=== PATIENT | female | born 1960 | race Caucasian/White ===

== ENCOUNTER → 2016-08-30 | Day surgery (SDC) | payer OTHER ==
[~2016-08-30] MED LIST: LACTATED RINGERS 1,000 ML IV SCH; LIDOCAINE 1% 20 ML VIAL (10MG/ML) FOR IV START INTRADERMA PRN; LIDOCAINE 1% INJ 10MG/ML (20 ML MDV) ONE; PROPOFOL 10 MG/ML 20 ML VIAL IV ONE
[2016-08-30 09:15] VITALS: RESP 16; TEMP 98.4
--- NOTE | 2016-08-30 10:05 | P.GSHP ---
History of Present Illness H&P Date: 08/30/16 Chief Complaint: GERD 's is a 56-year-old female for from Dr. Master Starr. Patient rents today for EGD. She's had issues with GERD and nausea. - Constitutional Constitutional: Reports as per HPI Past Medical History Past Medical History: Cancer, GERD/Reflux, Hypertension, Osteoarthritis (OA) Additional Past Medical History / Comment(s): Cervical CA, History of Any Multi-Drug Resistant Organisms: None Reported Past Surgical History: No Surgical Hx Reported Additional Past Surgical History / Comment(s): rt foot surgery, surgery for cervical CA Past Anesthesia/Blood Transfusion Reactions: Motion Sickness, Postoperative Nausea & Vomiting (PONV) Past Psychological History: Anxiety, Depression Smoking Status: Current every day smoker Past Alcohol Use History: Daily Additional Past Alcohol Use History / Comment(s): smokes 1 PPD for 35 yrs Past Drug Use History: Marijuana - Past Family History Mother Family Medical History: Cancer Medications and Allergies Home Medications Medication Instructions Recorded Confirmed Type FLUoxetine HCL [PROzac] 20 mg PO DAILY 12/02/14 08/30/16 History Lisinopril [Prinivil] 20 mg PO DAILY 12/02/14 08/30/16 History Meloxicam [Mobic] 7.5 mg PO BID 12/02/14 08/30/16 History Prochlorperazine [Compazine] 10 mg PO BID 08/27/16 08/30/16 History Propranolol HCl 80 mg PO DAILY 08/27/16 08/30/16 History traMADol HCL [Ultram] 50 mg PO TID 08/27/16 08/30/16 History Allergies Allergy/AdvReac Type Severity Reaction Status Date / Time No Known Allergies Allergy Verified 08/30/16 09:07 Surgical - Exam Vital Signs Temp Pulse Resp BP Pulse Ox 98.4 F 72 16 142/94 97 08/30/16 09:14 08/30/16 09:14 08/30/16 09:14 08/30/16 09:14 08/30/16 09:14 - General well developed, no distress - Eyes PERRL - ENT normal pinna - Neck no masses - Respiratory normal expansion - Cardiovascular Rhythm: regular - Abdomen Abdomen: soft, non tender Assessment and Plan Plan: GERD, nausea. We'll perform EGD.
--- NOTE | 2016-08-30 10:15 | P.OP ---
Date of Procedure: 08/30/16 Preoperative Diagnosis: GERD Postoperative Diagnosis: Mild antral gastritis No hiatal hernia Mild esophagitis Procedure(s) Performed: EGD Implants: Anesthesia: MAC Surgeon: Marty Smith Pathology: other (Antrum, esophagus) Condition: stable Disposition: PACU Indications for Procedure: Operative Findings: Description of Procedure: The patient's placed on the endoscopy table in the lateral position. She received IV sedation. The gastroscope some placed oropharynx and passed into the esophagus and stomach. Scope was then placed through the pylorus and into the first and second portion of the duodenum. This appeared normal. Scope was then brought back the antrum and this appeared mildly inflamed and a biopsy was performed. The scope was then retroflexed and remainder stomach appeared normal. Near the GI the junction there is mild gastritis another biopsy performed. There was no significant hiatal hernia. The distal esophagus appeared mildly inflamed a biopsies performed. The proximal esophagus appeared normal. Scope was withdrawn for patient.
[2016-08-30 11:31] VITALS: BP 184/88; PULSE 69
--- NOTE | 2016-08-30 15:58 | NM ---
EXAMINATION TYPE: NM hepatobiliary w EF DATE OF EXAM: 08/30/2016 COMPARISON: NONE HISTORY: Chronic nausea and indigestion. TECHNIQUE: After the intravenous administration of 5.26 mCi Tc 99m Mebrofenin hepatobiliary scintigra phy is performed. Immediate images post injection. FINDINGS: There is satisfactory initial accumulation of tracer by the liver. The gallbladder is visualized wit hin 120 minutes. The small bowel activity is noted within 20 minutes. At 2 hour 8 ounces of oral en sure plus is given to mimic CCK and gallbladder ejection fraction is calculated at 70 %, in the giacomo l range. Therefore there is no scintigraphic evidence of cystic or common bile duct obstruction to s uggest acute cholecystitis or gallbladder dyskinesia. IMPRESSION: Exam is within normal limits.
== END ==
LOC: ORWHC2ENDO 08:58
PROVIDERS: ATTEND Surgery
DX: K21.0 Gastro-esophageal reflux disease with esophagitis (principal); K29.70 Gastritis, unspecified, without bleeding; R11.0 Nausea; K30 Functional dyspepsia; I10 Essential (primary) hypertension; M19.90 Unspecified osteoarthritis, unspecified site; F41.9 Anxiety disorder, unspecified; F39 Unspecified mood [affective] disorder; F32.9 Major depressive disorder, single episode, unspecified; F17.200 Nicotine dependence, unspecified, uncomplicated; Z79.899 Other long term (current) drug therapy; Z79.891 Long term (current) use of opiate analgesic
CPT/HCPCS: 88305; 88312; 78226; 43239; A9537; J2001; J2704

== ENCOUNTER → 2016-09-22 | Outpatient (CLI) | payer OTHER ==
--- NOTE | 2016-09-22 12:11 | FL ---
EXAMINATION TYPE: FL UGI air w small bowel DATE OF EXAM: 09/22/2016 11:46 AM COMPARISON: NONE CLINICAL HISTORY: K21.9 GERD Preliminary view of the abdomen reveals a normal bowel gas pattern. Upper GI examination was performed according to the air contrast technique. Barium and effervescent crystal was swallowed without difficulty or delay. Esophageal peristalsis and motility are within normal limits. There is no evidence for esophagitis, intraluminal mass, hiatal hernia . Mild gastroesophageal reflux is noted without definite esophagitis . The stomach has a normal appearance in terms of its size, shape and location. No gastric filling def ects or ulcer craters are seen. The duodenal bulb and descending portion of the duodenum demonstrate wall thickening and nodular folds which may reflect underlying duodenitis or scarring from prior [facility] er disease. Correlate clinically. Small bowel follow-through was performed with a transit time of 60 minutes. Small bowel loops are of normal caliber and demonstrate normal mucosal fold pattern. No evidence for obstruction. No intrinsic or extrinsic mass effects or filling defects. Terminal ileum has a normal appearance. IMPRESSION: 1. Duodenal wall thickening and nodular folds may reflect underlying duodenitis or scarring from prio r ulcer disease. 2. Mild gastroesophageal reflux.
== END | disposition home or self-care (01) ==
LOC: RADFLMAIN 09:05
PROVIDERS: ATTEND Surgery
DX: K21.9 Gastro-esophageal reflux disease without esophagitis (principal); K31.89 Other diseases of stomach and duodenum; R91.8 Other nonspecific abnormal finding of lung field
CPT/HCPCS: 74249

== ENCOUNTER 2017-04-02 16:48 | Emergency (ER) | payer OTHER ==
[2017-04-02 17:08] VITALS: BP 112/83; PULSE 105; RESP 18; TEMP 101.8
[2017-04-02] MEDS ORDERED: ACETAMINOPHEN TAB 500 MG TAB PO STA (17:11)
[2017-04-02] MEDS ORDERED: IBUPROFEN 600 MG TAB PO STA (17:11)
--- NOTE | 2017-04-02 17:15 | ED ---
General Adult HPI - General Chief complaint: Upper Respiratory Infection Stated complaint: Cough Time Seen by Provider: 04/02/17 17:09 Source: patient, RN notes reviewed Mode of arrival: ambulatory Limitations: no limitations - History of Present Illness Initial comments: 56 yo female presents to the ER with cc of cough and congestion x 2 weeks. She states she has had cough, congestion, nasal drainage, and on and off fever and chills. Patient states she has been using Mucinex which does help. She was concerned due to her continued symptoms so she thought she should be seen. Patient is currently in the process of quitting smoking. Patient denies any recent fever, chills, shortness of breath, chest pain, back pain, abdominal pain , nausea vomiting, numbness or tingling, dysuria or hematuria, constipation or diarrhea, headaches or visual changes, or any other current symptoms. - Related Data Home Medications Medication Instructions Recorded Confirmed FLUoxetine HCL [PROzac] 20 mg PO DAILY 12/02/14 08/30/16 Lisinopril [Prinivil] 20 mg PO DAILY 12/02/14 08/30/16 Meloxicam [Mobic] 7.5 mg PO BID 12/02/14 08/30/16 Prochlorperazine [Compazine] 10 mg PO BID 08/27/16 08/30/16 Propranolol HCl 80 mg PO DAILY 08/27/16 08/30/16 traMADol HCL [Ultram] 50 mg PO TID 08/27/16 08/30/16 Previous Rx's Medication Instructions Recorded Albuterol Inhaler [Ventolin Hfa 1 - 2 puff INHALATION Q4-6H PRN #1 04/02/17 Inhaler] inhaler Levofloxacin [Levaquin] 750 mg PO DAILY #7 tab 04/02/17 Allergies Allergy/AdvReac Type Severity Reaction Status Date / Time No Known Allergies Allergy Verified 04/02/17 17:08 Review of Systems ROS Statement: Those systems with pertinent positive or pertinent negative responses have been documented in the HPI. ROS Other: All systems not noted in ROS Statement are negative. Past Medical History Past Medical History: Cancer, GERD/Reflux, Hypertension, Osteoarthritis (OA) Additional Past Medical History / Comment(s): Cervical CA, ddd History of Any Multi-Drug Resistant Organisms: None Reported Past Surgical History: No Surgical Hx Reported Additional Past Surgical History / Comment(s): rt foot surgery, surgery for cervical CA Past Anesthesia/Blood Transfusion Reactions: Motion Sickness, Postoperative Nausea & Vomiting (PONV) Past Psychological History: Anxiety, Depression Smoking Status: Current every day smoker Past Alcohol Use History: Daily Past Drug Use History: Marijuana - Past Family History Mother Family Medical History: Cancer General Exam - General Exam Comments Initial Comments: General exam: Alert, active, comfortable in no apparent distress Head: Normocephalic Eyes: Normal reaction of pupils, equal size, normal range of extraocular motion Ears: normal external ear canals, pink tympanic membranes with normal cone of light Nose: clear with pink turbinates Throat: no erythema or exudates with normal sized tonsils Neck: no masses, no nuchal rigidity Chest: no chest wall deformity Lungs: equal air entry with no crackles or wheeze CVS: S1 and S2 normal with no audible mumurs, regular rhythm Abdomen: no hepatosplenomegaly, normal bowel sounds, no guarding or rigidity Spine: no scoliosis or deformity Skin: no rashes Neurological: No focal deficits, tone is normal in all 4 extremities Limitations: no limitations Course Vital Signs 04/02/17 17:04 Temperature 101.8 F H Pulse Rate 105 H Respiratory 18 Rate Blood Pressure 112/83 O2 Sat by Pulse 96 Oximetry Medical Decision Making - Medical Decision Making 56-year-old female presents for upper respiratory like illness. At this time x- ray does show pneumonia. This was a patient on Levaquin. We also did give her an inhaler for home. We discussed follow-up with her doctor and return parameters. We discussed all the patient's questions. She stated that she understood and she is agreement this plan. All questions have been answered. She will be discharged. - Lab Data Lab Results 04/02/17 Range/Units 17:18 Influenza Type A RNA Not Detected (Not Detectd) Influenza Type B (PCR) Not Detected (Not Detectd) - Radiology Data Radiology results: report reviewed, image reviewed Disposition Clinical Impression: Pneumonia of both lower lobes Disposition: HOME SELF-CARE Condition: Stable Instructions: Bacterial Pneumonia (ED) Additional Instructions: Please use medication as discussed. Please follow up with family doctor if symptoms have not improved over the next two days. Please return to the emergency room if your symptoms increase or worsen or for any other concerns. Prescriptions: Albuterol Inhaler [Ventolin Hfa Inhaler] 1 - 2 puff INHALATION Q4-6H PRN #1 inhaler PRN Reason: Cough Levofloxacin [Levaquin] 750 mg PO DAILY #7 tab Referrals: Master Justice MD [Primary Care Provider] - 1-2 days Time of Disposition: 17:53
--- NOTE | 2017-04-02 17:33 | XR ---
EXAMINATION TYPE: XR chest 2V DATE OF EXAM: 04/02/2017 COMPARISON: Chest x-ray October 15, 2015. HISTORY: Cough. TECHNIQUE: Frontal and lateral views of the chest are obtained. FINDINGS: There is Right greater than left patchy bibasilar opacities with lower lobe involvement se en on lateral view. No pleural effusion or pneumothorax is seen. The cardiac silhouette size is with in normal limits. The osseous structures are intact. IMPRESSION: New suspicious right greater than left bibasilar infiltrates.
== END 2017-04-02 18:09 | disposition home or self-care (01) ==
LOC: EC 16:48
DX: J18.9 Pneumonia, unspecified organism (principal); K21.9 Gastro-esophageal reflux disease without esophagitis; I10 Essential (primary) hypertension; M19.90 Unspecified osteoarthritis, unspecified site; F32.9 Major depressive disorder, single episode, unspecified; F41.9 Anxiety disorder, unspecified; F17.200 Nicotine dependence, unspecified, uncomplicated; Z85.41 Personal history of malignant neoplasm of cervix uteri; Z79.1 Long term (current) use of non-steroidal anti-inflammatories (NSAID); Z79.899 Other long term (current) drug therapy
CPT/HCPCS: 71046; 87502; 99283

== ENCOUNTER 2018-12-03 17:25 | Emergency (ER) | payer MEDICARE, OTHER ==
[2018-12-03 17:35] VITALS: RESP 16
--- NOTE | 2018-12-03 18:32 | XR ---
EXAMINATION TYPE: XR hand complete LT DATE OF EXAM: 12/03/2018 COMPARISON: NONE HISTORY: Pain and swelling TECHNIQUE: 4 views FINDINGS: There is nondisplaced fracture of the posterior base of the proximal phalanx of the little finger. There is dorsal soft tissue swelling. The metacarpals appear intact. There is some narrowing and spurring at the first carpometacarpal joint. There is some deformity of the base of the proximal phalanx of the ring finger consistent with an old healed fracture. IMPRESSION: Acute transverse fracture across the base of the proximal phalanx of the little finger. N o dislocation. Soft tissue swelling.
--- NOTE | 2018-12-03 18:57 | ED ---
Upper Extremity HPI - General Chief Complaint: Extremity Injury, Upper Stated Complaint: left hand injury from fall Time Seen by Provider: 12/03/18 17:50 Source: patient Mode of arrival: ambulatory Limitations: no limitations - History of Present Illness Initial Comments: Patient is a 58-year-old female presenting to the emergency Department with complaints of left hand pain since yesterday. Patient states she tripped and fell landing on her left hand onto cement yesterday. Patient states the pain and swelling has increased today so she wanted to it to be checked. Patient denies any previous surgeries or injuries to left hand. Patient has no other complaints at this time. Patient denies hitting her head or any other injuries from a fall yesterday. Upon arrival to ER medicines are stable. - Related Data Home Medications Medication Instructions Recorded Confirmed FLUoxetine HCL [PROzac] 20 mg PO DAILY 12/02/14 08/30/16 Lisinopril [Prinivil] 20 mg PO DAILY 12/02/14 08/30/16 Meloxicam [Mobic] 7.5 mg PO BID 12/02/14 08/30/16 Prochlorperazine [Compazine] 10 mg PO BID 08/27/16 08/30/16 Propranolol HCl 80 mg PO DAILY 08/27/16 08/30/16 traMADol HCL [Ultram] 50 mg PO TID 08/27/16 08/30/16 Previous Rx's Medication Instructions Recorded Albuterol Inhaler [Ventolin Hfa 1 - 2 puff INHALATION Q4-6H PRN #1 04/02/17 Inhaler] inhaler Levofloxacin [Levaquin] 750 mg PO DAILY #7 tab 04/02/17 Allergies Allergy/AdvReac Type Severity Reaction Status Date / Time No Known Allergies Allergy Verified 12/03/18 17:35 Review of Systems ROS Statement: Those systems with pertinent positive or pertinent negative responses have been documented in the HPI. ROS Other: All systems not noted in ROS Statement are negative. Past Medical History Past Medical History: Cancer, GERD/Reflux, Hypertension, Osteoarthritis (OA) Additional Past Medical History / Comment(s): Cervical CA, ddd History of Any Multi-Drug Resistant Organisms: None Reported Past Surgical History: No Surgical Hx Reported Additional Past Surgical History / Comment(s): rt foot surgery, surgery for cervical CA Past Anesthesia/Blood Transfusion Reactions: Motion Sickness, Postoperative Nausea & Vomiting (PONV) Past Psychological History: Anxiety, Depression Smoking Status: Current every day smoker Past Alcohol Use History: Daily Past Drug Use History: Marijuana - Past Family History Mother Family Medical History: Cancer General Exam - General Exam Comments Initial Comments: GENERAL: Well-appearing, well-nourished and in no acute distress. HEAD: Atraumatic, normocephalic. EYES: Pupils equal round and reactive to light, extraocular movements intact, sclera anicteric, conjunctiva are normal. ENT: TMs normal, nares patent, oropharynx clear without exudates. Moist mucous membr anes. NECK: Normal range of motion, supple without lymphadenopathy or JVD. LUNGS: Breath sounds clear to auscultation bilaterally and equal. No wheezes rales or rhonchi. HEART: Regular rate and rhythm without murmurs, rubs or gallops. ABDOMEN: Soft, nontender, normoactive bowel sounds. No guarding, no rebound. No masses appreciated. : Deferred EXTREMITIES: Patient has significant swelling and bruising on the dorsal and palmar aspect of the left hand. Patient has tenderness of the left fourth and fifth digits and in the metacarpals. Patient has full wrist range of motion and no pain in the wrist. Patient is neurovascular intact. There is no erythema. Normal range of motion, no pitting or edema. No clubbing or cyanosis. NEUROLOGICAL: Cranial nerves II through XII grossly intact. Normal speech, normal gait. PSYCH: Normal mood, normal affect. SKIN: Warm, Dry, normal turgor, no rashes or lesions noted. Limitations: no limitations Course Vital Signs 12/03/18 17:33 Temperature 98.6 F Pulse Rate 86 Respiratory 16 Rate Blood Pressure 116/82 O2 Sat by Pulse 100 Oximetry Medical Decision Making - Medical Decision Making Patient is a 58-year-old female presenting with left hand pain after falling yesterday onto cement. Patient states she put her hand out to catch her cell. On exam patient has significant swelling of the left hand. X-ray of the right hand reveals an acute transverse fracture of the base the proximal phalanx of the little finger. No dislocation. Patient was placed in a splint and will follow up with orthopedics tomorrow. Patient will take Motrin for pain relief. Patient will ice and elevate the hand as well. All patient's questions were answered. Patient is stable for discharge at this time. Return parameters were discussed with the patient and she verbalized understanding. Case discussed with Dr. Lopez. Disposition Clinical Impression: Proximal phalanx fracture of finger Disposition: HOME SELF-CARE Condition: Stable Instructions (If sedation given, give patient instructions): Finger Fracture (ED) Additional Instructions: Please return to the Emergency Department if symptoms worsen or any other concerns. Follow with orthopedics as discussed. Is patient prescribed a controlled substance at d/c from ED?: No Referrals: Master Justice MD [Primary Care Provider] - 1-2 days Eloy Plaza DO [Medical Doctor] - 1-2 days
[2018-12-03 19:07] VITALS: BP 114/91; PULSE 92; TEMP 98.2
== END 2018-12-03 19:00 | disposition home or self-care (01) ==
LOC: EC 17:25
DX: S62.617A Displaced fracture of proximal phalanx of left little finger, initial encounter for closed fracture (principal); I10 Essential (primary) hypertension; F41.9 Anxiety disorder, unspecified; F32.9 Major depressive disorder, single episode, unspecified; F17.200 Nicotine dependence, unspecified, uncomplicated; Z79.1 Long term (current) use of non-steroidal anti-inflammatories (NSAID); Z79.899 Other long term (current) drug therapy; Z85.41 Personal history of malignant neoplasm of cervix uteri; W01.0XXA Fall on same level from slipping, tripping and stumbling without subsequent striking against object, initial encounter; Y92.009 Unspecified place in unspecified non-institutional (private) residence as the place of occurrence of the external cause
CPT/HCPCS: 99283

== ENCOUNTER → 2018-12-07 | Outpatient (CLI) | payer MEDICARE | END | disposition home or self-care (01) | LOC: LABWHC1 11:33 | PROVIDERS: ATTEND Orthopaedic Surgery | DX: M79.642 Pain in left hand (principal) | CPT/HCPCS: 36415; 82306 ==

== ENCOUNTER 2018-12-08 13:02 | Day surgery (SDC) | payer MEDICARE ==
[2018-12-07 12:30] VITALS: BMI 19.7
[2018-12-08 13:31] VITALS: TEMP 97.8
[2018-12-08] MEDS ORDERED: SCOPOLAMINE 1.5MG/72HR PATCH TRANSDERM ONE (13:40)
[2018-12-08] MEDS ORDERED: LIDOCAINE 1% 20 ML VIAL (10MG/ML) FOR IV START INTRADERMA ONE (13:41)
[2018-12-08] MEDS ORDERED: LACTATED RINGERS 1,000 ML IV ONE ×2 (13:41→17:22)
[2018-12-08] MEDS ORDERED: ONDANSETRON 4 MG/2 ML VIAL IVP ONE (13:45)
[2018-12-08] MEDS ORDERED: DEXAMETHASONE SOD PHOS (MDV) 100 MG/10 ML VIAL IVP ONE (13:46)
[2018-12-08] MEDS ORDERED: METOCLOPRAMIDE 5 MG/ML 2 ML VIAL IVP ONE (14:41)
[2018-12-08] MEDS ORDERED: FAMOTIDINE 20 MG/2 ML VIAL IVP ONE (14:42)
[2018-12-08] MEDS ORDERED: MIDAZOLAM (PF) 2 MG/2 ML VIAL IVP ONE (14:52)
--- NOTE | 2018-12-08 15:17 | P.ANPRN ---
Procedure Note - Anesthesia - Nerve Block Performed Left Infraclavicular Single Time Out Performed: Yes Date of Procedure: 12/08/18 Procedure Start Time: 14:58 Procedure Stop Time: 15:05 Location of Patient Procedure: PreOp Indication: Acute Post-Operative Pain, Dx/Pain Location, Requested by Surgeon Sedation Type: Sedate with meaningful contact maintained Preparation: Sterile Prep Position: Supine Catheter: None Needle Types: Pajunk Needle Gauge: 21 Ultrasound used to visualize needle placement: No Ultrasound used to observe medication spread: No Injectate: 0.5% Ropivacaine (see comment for volume) (20ml) Blood Aspirated: No Pain Paresthesia on Injection Noted: No Resistance on Injection: Normal Image Stored and Saved: Yes Events: Uneventful and Well Tolerated
[2018-12-08] MEDS ORDERED: PROPOFOL 10 MG/ML 20 ML VIAL IV ONE (15:52)
[2018-12-08] MEDS ORDERED: GLYCOPYRROLATE 0.2 MG/ML 2 ML VIAL ONE (15:52)
[2018-12-08] MEDS ORDERED: LIDOCAINE 1%-EPI 1:100,000 20 ML VIAL SQ ONE (17:54)
[2018-12-08] MEDS ORDERED: ROPIVACAINE 5MG/ML 20ML VIAL MISCELLANE ONE (17:54)
[2018-12-08 19:26] VITALS: RESP 16
[2018-12-08 19:51] VITALS: BP 146/52; PULSE 60
--- NOTE | 2018-12-09 | FL ---
EXAMINATION TYPE: FL guidance operating room, XR finger LT DATE OF EXAM: 12/08/2018 CLINICAL HISTORY: Left finger fractures. TECHNIQUE: Fluoroscopy. Intraoperative 2 views left fingers. COMPARISON: Left hand x-ray 5 days earlier.. FINDINGS: Fluoroscopic guidance was provided during open reduction internal fixation procedure perfo rmed by Dr. Plaza. A total of 2 minutes 25 seconds of fluoroscopic time was utilized during the procedure and 8 spot images are acquired. Intraoperative images acquired show placement of external K wires through fracture deformities proxim al metaphysis of the fourth and fifth proximal phalanx. Satisfactory alignment is seen on intraoperat domenico images obtained. IMPRESSION: As Above.
--- NOTE | 2018-12-09 17:13 | P.OP ---
Date of Procedure: 12/08/18 Preoperative Diagnosis: Displaced, intra-articular fractures of the left ring and small finger proximal phalanges Postoperative Diagnosis: Displaced, intra-articular fractures of the left ring and small finger proximal phalanges Procedure(s) Performed: 1. Open reduction and internal fixation of comminuted intra-articular left ring finger proximal phalanx base fracture 2. Closed reduction and percutaneous pinning of comminuted intra-articular left small finger proximal phalanx base fracture Implants: 0.035 K-wire (1), 0.045 K- wire (3) Anesthesia: MAC, regional, local Surgeon: Eloy Plaza Nuclear Engineering Technician #1: Sol Rico Estimated Blood Loss (ml): 5 Condition: stable Disposition: PACU Indications for Procedure: The patient is a pleasant 58-year-old female who sustained displaced fractures of her left ring and small finger proximal phalanx bases after mechanical fall. Treatment options (and associated risks and benefits) were discussed in the office. Surgical treatment was recommended. In preop, the patient denied any additional questions or concerns and wished to proceed with surgery. Consent forms were signed. The operative sites were confirmed and marked in preop. Description of Procedure: The patient was administered a regional nerve block by the anesthesia team and was brought to the operating suite and positioned supine with the operative limb on an arm board. All bony prominences were well-padded. Monitored anesthesia was administered uneventfully. Prophylactic IV antibiotics were administered. A tourniquet was placed on the operative arm which was then prepped and draped in standard, sterile fashion. A timeout was performed, confirming patient identifiers, the operative side, the sites and procedures to be performed: all team members expressed agreement. The limb was exsanguinated with an Esmarch and the tourniquet was inflated. The fractures were evaluated on multiple views using intraoperative fluoroscopy. Loupe magnification was utilized throughout the case for optimum visualization. The ring finger was approached first. A midaxial incision was marked on the ulnar border of the proximal phalanx, curving gently around the metacarpal head. Skin was sharply incised and full-thickness skin flaps were elevated. The distal portion of the extensor expansion was released and elevated to expose the base of the proximal phalanx. The periosteum was sharply incised and reflected and a capsulotomy was made to expose the fracture. There was a large, minimally displaced fragment of the ulnar condyle. A secondary fracture line was identified running parallel and immediately below the articular surface with subchondral impaction. The fracture was gently manipulated with a dental pick. Good provisional reduction was obtained and confirmed on imaging. Due to the orientation of the fracture lines, attempts to apply a reduction clamp led to displacement. With the fracture held reduced, a 1.5 mm lag screw was drilled, measured and inserted. X-rays showed the screw to be too long. This was removed, remeasured and exchanged for a shorter screw but this failed to gain purchase. A 2.0 mm screw was inserted but also did not achieve adequate fixation. The decision was made to stabilize the fracture with K wires. A 0.035 K wire was inserted through the wound and into the ulnar condyle fragment. This was advanced down the medullary canal. Position was confirmed on orthogonal images. A 0.045 K wire was inserted percutaneously on the radial aspect of the proximal phalanx. The starting point was confirmed on imaging and the wire was advanced antegrade down the canal. Pin placement and fracture reduction were confirmed on imaging and found to be satisfactory. Attention was then turned to the small finger. A manual reduction was performed which showed improved alignment on imaging. A 0.045 K wire was inserted percutaneously on the ulnar aspect of the proximal phalanx. The starting point was confirmed on imaging and the wire was advanced down the medullary canal. A second wire was inserted in the same fashion on the opposite side of the phalanx. Pin placement and fracture reduction were evaluated on orthogonal images and found to be satisfactory. Final x-rays were obtained which revealed satisfactory reduction of the fractures. The fingers were then stressed under live fluoroscopy - no motion was appreciated at the fracture sites. Passive motion of the MCP joints of both fingers revealed smooth, stable articulations without crepitus. No tethering of the extensor tendons was appreciated. The pins were cut and covered with Jurgan balls. The wound was thoroughly irrigated with normal saline. The periosteum was repaired with interrupted 4-0 Vicryl sutures. The tourniquet was released after 110 minutes at 250 mmHg. Hemostasis was obtained with held pressure and bipolar cautery but mild generalized oozing was present. The incision was closed around the K wire with interrupted 4-0 nylon sutures. Local anesthetic with epinephrine was injected for adjunctive postoperative pain control and hemostasis. Mild, steady bleeding was noted even from the puncture sites from the 25-gauge hypodermic needle. A sterile dressing was applied followed by a resting ulnar gutter plaster splint with the hand in the intrinsic plus position. All sponge, needle and instrument counts were correct at the end of the case. The patient tolerated the procedure well and was taken to the recovery room in stable condition.
== END 2018-12-08 20:05 | disposition home or self-care (01) ==
LOC: OR 13:02
PROVIDERS: ATTEND Orthopaedic Surgery
DX: S62.615A Displaced fracture of proximal phalanx of left ring finger, initial encounter for closed fracture (principal); S62.617A Displaced fracture of proximal phalanx of left little finger, initial encounter for closed fracture; W19.XXXA Unspecified fall, initial encounter; I10 Essential (primary) hypertension; F32.9 Major depressive disorder, single episode, unspecified; Z83.3 Family history of diabetes mellitus; Z82.49 Family history of ischemic heart disease and other diseases of the circulatory system; F17.210 Nicotine dependence, cigarettes, uncomplicated; K21.9 Gastro-esophageal reflux disease without esophagitis; R25.1 Tremor, unspecified; Z79.899 Other long term (current) drug therapy
CPT/HCPCS: 64413; 73140; 26735 ×2; C1713; J2765; J0690; J2405; J1100; J2704; J2795; J2250

== ENCOUNTER → 2019-02-09 | Outpatient (CLI) | payer MEDICARE ==
--- NOTE | 2019-02-09 15:29 | BD ---
EXAMINATION TYPE: Axial Bone Density DATE OF EXAM: 02/09/2019 COMPARISON: NONE CLINICAL HISTORY: N 95.1 Height: 65.5 Weight: 123.4 FRAX RISK QUESTIONS: Alcohol (3 or more units per day): no Family History (Parent hip fracture): no Glucocorticoids (More than 3mos): no (Ex: prednisone, prednisolone, methylprednisolone, dexamethasone, and hydrocortisone). History of Fracture in Adulthood: yes Secondary Osteoporosis: 1. Type 1 Diabetes: no 2. Hyperthyroidism: no 3. Menopause before 45: no 4. Malnutrition: no 5. Chronic liver disease: no Rheumatoid Arthritis: no Current Tobacco Use: yes RISK FACTORS HISTORY OF: Family History of Osteoporosis: no Active: sometimes Diet low in dairy products/other sources of calcium: yes Postmenopausal woman: age 52 MEDICATIONS: tramadol, propranolol, flexatine, lisinopril, omeprazole Additional History: EXAM MEASUREMENTS: Bone mineral densitometry was performed using the [employer] System. Bone mineral density as measured about the Lumbar spine is: ----- L1-L4(G/cm2): 1.083 T Score Values are as follows: ----- L2: -1.6 ----- L3: -0.8 ----- L4: -0.1 ----- L1-L4: -0.8 Bone mineral density : baseline Bone mineral density about the R hip (g/cm2): 0.830 Bone mineral density about the L hip (g/cm2): 0.857 T Score values are as follows: -----R Neck: -1.5 -----L Neck: -1.3 -----R Total: -1.9 -----L Total: -1.7 Bone mineral density : baseline IMPRESSION: Osteopenia (T Score between -2.5 and -1). There is slightly increased risk of fracture and the patient may be considered for treatment. Re-Screen 2-5 years. NOTE: T-SCORE=SD OF THE YOUNG ADULT MEAN.
--- NOTE | 2019-02-13 10:24 | MM ---
Reason for exam: screening (asymptomatic). Last mammogram was performed 2 years and 1 month ago. History: Patient is postmenopausal and history of other cancer. Family history of breast cancer in maternal grandmother and breast cancer in maternal aunt. Physical Findings: A clinical breast exam by your physician is recommended on an annual basis and results should be correlated with mammographic findings. MG 3D Screening Mammo W/Cad Bilateral CC and MLO view(s) were taken. Prior study comparison: January 04, 2017, bilateral MG screening mammo w CAD. The breast tissue is extremely dense which could obscure a lesion on mammography. No significant changes when compared with prior studies. ASSESSMENT: Negative, BI-RAD 1 RECOMMENDATION: Routine screening mammogram of both breasts in 1 year. Patient should continue monthly self breast exams. A negative report should not preclude additional follow up of suspicious palpable abnormalities.
== END | disposition home or self-care (01) ==
LOC: RADMAMWWP 14:31
PROVIDERS: ATTEND Obstetrics & Gynecology
DX: Z12.31 Encounter for screening mammogram for malignant neoplasm of breast (principal); M85.80 Other specified disorders of bone density and structure, unspecified site; N95.1 Menopausal and female climacteric states
CPT/HCPCS: 77063; 77067; 77080

== ENCOUNTER 2019-12-07 22:53 | Emergency (ER) | payer MEDICARE ==
[2019-12-07 23:08] VITALS: BP 108/63; PULSE 64; RESP 18; TEMP 98.3
[2019-12-08] MEDS ORDERED: MORPHINE SULFATE 4 MG/ML SYRINGE IM STA (00:02)
--- NOTE | 2019-12-08 00:25 | ED ---
Fall HPI - General Chief Complaint: Fall Stated Complaint: left side rib pain Time Seen by Provider: 12/07/19 23:19 Source: patient Mode of arrival: ambulatory - History of Present Illness Initial Comments: This patient is a 59-year-old woman who presents to be evaluated for left-sided chest pain after fall. Patient states that she had slipped and fallen onto the edge of an air conditioning unit this evening. She had some pain and then when this continued to cause pain when she was taking a deep breath and she came here to be evaluated. She denies any other trauma related to the fall. No loss consciousness. No head or neck pain. There is no pain in the abdomen. She is not feeling dyspneic. MD Complaint: fall -: hour(s) Fall From: standing When Fall Occurred: 4-6 hours [employer] Fall Witnessed: yes, by family Place Fall Occurred: home Loss of Consciousness: none Prolonged Down Time?: no Symptoms Prior to Fall: none Location: chest Severity: moderate Quality: sharp Context: tripped/slipped Associated Symptoms: chest paint - Related Data Home Medications Medication Instructions Recorded Confirmed lisinopriL [Prinivil] 20 mg PO DAILY 12/02/14 12/07/18 Propranolol HCl 80 mg PO DAILY 08/27/16 12/07/18 traMADol HCL [Ultram] 50 mg PO TID PRN 08/27/16 12/07/18 FLUoxetine HCL [PROzac] 40 mg PO DAILY 12/07/18 12/07/18 Ibuprofen 400 mg PO BID PRN 12/07/18 12/07/18 Omeprazole [PriLOSEC] 40 mg PO DAILY 12/07/18 12/07/18 Previous Rx's Medication Instructions Recorded HYDROcodone/APAP 5-325MG [[place] 1 tab PO Q4HR PRN #18 tab 12/08/18 5-325] Hydrocodone/Acetaminophen [[place] 1 each PO Q6HR PRN #20 tab 12/08/19 5-325] Ibuprofen [Motrin] 600 mg PO Q8HR PRN #20 tab 12/08/19 Allergies Allergy/AdvReac Type Severity Reaction Status Date / Time No Known Allergies Allergy Verified 12/07/19 23:08 Review of Systems ROS Statement: Those systems with pertinent positive or pertinent negative responses have been documented in the HPI. ROS Other: All systems not noted in ROS Statement are negative. Constitutional: Denies: fever, chills Respiratory: Denies: cough, dyspnea, hemoptysis Cardiovascular: Reports: as per HPI, chest pain. Denies: palpitations, syncope Gastrointestinal: Denies: abdominal pain, vomiting, diarrhea Genitourinary: Denies: dysuria, hematuria Musculoskeletal: Denies: back pain Neurological: Denies: headache Past Medical History Past Medical History: Cancer, GERD/Reflux, Hypertension, Osteoarthritis (OA) Additional Past Medical History / Comment(s): Cervical CA, ddd History of Any Multi-Drug Resistant Organisms: None Reported Past Surgical History: No Surgical Hx Reported Additional Past Surgical History / Comment(s): rt foot surgery, surgery for cervical CA Past Anesthesia/Blood Transfusion Reactions: Motion Sickness, Postoperative Nausea & Vomiting (PONV) Past Psychological History: Anxiety, Depression Past Alcohol Use History: Daily - Past Family History Mother Family Medical History: Cancer General Exam Limitations: no limitations General appearance: alert, in no apparent distress Head exam: Present: atraumatic, normocephalic Neck exam: Present: normal inspection, full ROM. Absent: tenderness Respiratory exam: Present: normal lung sounds bilaterally, chest wall tenderness (This tenderness knee lateral left chest in the midaxillary line.). Absent: respiratory distress, wheezes, rales, rhonchi, stridor, accessory muscle use, decreased breath sounds, prolonged expiratory Cardiovascular Exam: Present: regular rate, normal rhythm, normal heart sounds. Absent: systolic murmur, diastolic murmur, rubs, gallop GI/Abdominal exam: Present: soft. Absent: distended, tenderness, guarding, rebound, rigid, mass Extremities exam: Present: normal inspection, normal capillary refill. Absent: pedal edema, calf tenderness Back exam: Present: normal inspection. Absent: CVA tenderness (R), CVA tenderness (L), paraspinal tenderness, vertebral tenderness Neurological exam: Present: alert Skin exam: Present: warm, dry, intact, normal color. Absent: rash Course Vital Signs 12/07/19 23:04 Temperature 98.3 F Pulse Rate 64 Respiratory 18 Rate Blood Pressure 108/63 O2 Sat by Pulse 98 Oximetry Disposition Clinical Impression: Fall, Ribs, multiple fractures Disposition: HOME SELF-CARE Condition: Good Instructions (If sedation given, give patient instructions): Rib Fracture (ED) Prescriptions: Ibuprofen [Motrin] 600 mg PO Q8HR PRN #20 tab PRN Reason: Pain Hydrocodone/Acetaminophen [[place] 5-325] 1 each PO Q6HR PRN #20 tab PRN Reason: Pain Is patient prescribed a controlled substance at d/c from ED?: Yes When asked, does pt state using other controlled substances?: No If prescribed controlled substance>3 days was MAPS reviewed?: Prescribed <3 Days If opioid is for acute pain is fill amount 7 days or less?: Yes If Rx opioid, was Start Talking consent form obtained?: Yes Referrals: Master Justice MD [Primary Care Provider] - 1-2 days
[2019-12-08] MEDS ORDERED: ACET/COD 300 MG/30 MG STARTER PACK 6 TAB BTL PO STA (00:29)
--- NOTE | 2019-12-08 00:46 | XR ---
EXAMINATION TYPE: XR ribs LT w pa chest xray DATE OF EXAM: 12/08/2019 COMPARISON: 04/02/2017 HISTORY: Fever TECHNIQUE: 5 views FINDINGS: Heart and mediastinum are normal. Lungs are clear of infiltrate. There is no pleural effusi on or pneumothorax. There is fracture lateral left 10th rib and 11th rib. There is no displacement. IMPRESSION: No cardiopulmonary disease. Acute fractures of lower lateral ribs. Normal heart and lungs . There is clearing of right lower lobe pneumonia compared to old exam
== END 2019-12-08 00:43 | disposition home or self-care (01) ==
LOC: EC 22:53
DX: S22.42XA Multiple fractures of ribs, left side, initial encounter for closed fracture (principal); I10 Essential (primary) hypertension; K21.9 Gastro-esophageal reflux disease without esophagitis; M19.90 Unspecified osteoarthritis, unspecified site; F41.9 Anxiety disorder, unspecified; F32.9 Major depressive disorder, single episode, unspecified; Z79.899 Other long term (current) drug therapy; Z85.41 Personal history of malignant neoplasm of cervix uteri; W01.198A Fall on same level from slipping, tripping and stumbling with subsequent striking against other object, initial encounter; Y92.009 Unspecified place in unspecified non-institutional (private) residence as the place of occurrence of the external cause
CPT/HCPCS: 71101; 99283; 96372; J2270

== ENCOUNTER → 2020-01-25 | Outpatient (CLI) | payer MEDICARE ==
--- NOTE | 2020-01-25 12:50 | CTL ---
EXAMINATION TYPE: CT Low Dose Lung DATE OF EXAM ORDERED: 01/25/2020 HISTORY: Tobacco use. Lung cancer screening CT DLP: [address] CTDI: 1.80 mGy Automated exposure control for dose reduction was used. SCREENING VISIT: Yes COMPARISON: None TECHNIQUE: Low dose computed tomography scan was performed through the chest at 1 mm thick sections a nd reconstructed images in the coronal plane at [address] DIAGNOSTIC QUALITY: Satisfactory FINDINGS: LUNG NODULES: Present, detailed below: There is a groundglass and cavitary nodule of the right upper lobe measuring 1.4 x 1.6 x 0.9 cm (seri es 5 image 96, series 7 image 251). LUNGS: COPD: Severity: Mild to moderate Fibrosis: Severity: None Lymph nodes: None Other findings: Mild bronchiectasis RIGHT PLEURAL SPACE: Effusion: None Calcification: None Thickening: Mild apical Pneumothorax: None LEFT PLEURAL SPACE: Effusion: None Calcification: None Thickening: Mild apical Pneumothorax: None HEART: Heart Size: Normal Coronary calcification: Mild Pericardial effusion: None OTHER FINDINGS: Upper abdomen: None Bony thorax: None Supraclavicular region: None Other: None IMPRESSION: There is a suspicious 1.4 x 1.6 x 0.9 groundglass cavitary nodule of the right upper lobe . Differential includes malignant and infectious etiologies. FOLLOW UP CT CHEST RECOMMENDATION: Recommend follow-up CT chest in [address] LUNG RAD: Lung-Rad 4A Suspicious
== END | disposition home or self-care (01) ==
LOC: RADCTMAIN 08:16
PROVIDERS: ATTEND Family Medicine
DX: Z12.2 Encounter for screening for malignant neoplasm of respiratory organs (principal); R91.1 Solitary pulmonary nodule; F17.210 Nicotine dependence, cigarettes, uncomplicated

== ENCOUNTER → 2020-04-01 | Outpatient (CLI) | payer MEDICARE ==
--- NOTE | 2020-04-02 08:18 | CT ---
EXAMINATION TYPE: CT chest w con DATE OF EXAM: 04/01/2020 COMPARISON: Low-dose CT chest 01/25/2020 HISTORY: Abnormal low dose ct. CT DLP: 130.1 mGycm, Automated exposure control for dose reduction was used. CONTRAST: Performed injected with 100 mL of Isovue M300. TECHNIQUE: Axial images were obtained at 5 mm thick sections. Reconstructed images are reviewed on [employer] computer in the coronal plane. FINDINGS: Portion of the thyroid visualized is normal. Bilateral apical scarring may be present. There is an infiltrate through the periphery of the right upper lobe. Series 4 image 19. This groundg lass opacity measures 1.6 cm in diameter. This is stable in size from comparison. No enlarged mediastinal or hilar adenopathy is evident. The ascending aorta diameter at the level o f the main pulmonary artery is 3.1 cm. The main pulmonary artery diameter at the bifurcation is 2.[address] sections are obtained through the upper abdomen. Abdomen is essentially unremarkable. IMPRESSIONS: 1. Groundglass opacity which may contain a couple small cavitations is stable in size from the prior study. An additional follow-up CT chest to confirm stability in 3 months is recommended. Neoplasm and scarring are not excluded from the differential.
== END | disposition home or self-care (01) ==
LOC: RADCTMAIN 15:53
PROVIDERS: ATTEND Family Medicine
DX: R91.8 Other nonspecific abnormal finding of lung field (principal)
CPT/HCPCS: 71260; Q9967

== ENCOUNTER → 2020-05-09 | Outpatient (CLI) | payer MEDICARE ==
--- NOTE | 2020-05-09 11:55 | PE ---
EXAMINATION TYPE: PET CT fusion skull to thigh DATE OF EXAM: 05/09/2020 COMPARISON: Chest CT April 01, 2020 HISTORY: Abnormal CT, solitary pulmonary nodule. TECHNIQUE: Following the intravenous administration of 12.28 mCi of F-18 FDG, whole body images are performed from the skull base to the midthigh. Images are reviewed on the computer in the coronal, a xial, and sagittal planes. Reconstructed rotating images are created on independent workstation and reviewed on the computer. A localization and attenuation correction CT is performed in conjunction with the PET scan. Blood glucose level was 98 SCAN: Initial Scan FINDINGS: SKULL BASE AND NECK: No areas of suspicious hypermetabolic uptake. CHEST, MEDIASTINUM, AND HILAR REGION: Stable right upper lobe 1.8 x 1.2 cm area of groundglass opacit y with reticulation and focal cylindrical bronchiectasis. This area is ametabolic. No areas of abnorm al hypermetabolic uptake. ABDOMEN AND PELVIS: No areas of abnormal hypermetabolic uptake. Some nonspecific bowel uptake in the right lower quadrant. Normal excretion. OSSEOUS STRUCTURES: No suspicious hypermetabolic uptake. OTHER CT: Mild to moderate underlying emphysematous change redemonstrated. Some scattered left-sided pelvic phleboliths. IMPRESSION: No suspicious hypermetabolic uptake to suggest neoplasm. Favor postinflammatory scarring. Low-grade neoplasm such as bronchioloalveolar carcinoma not entirely excluded. Consider CT follow-up in 1 year time to document stability.
== END | disposition home or self-care (01) ==
LOC: RADPETMAIN 08:37
PROVIDERS: ATTEND Family Medicine
DX: R91.8 Other nonspecific abnormal finding of lung field (principal)
CPT/HCPCS: 78815; A9552

== ENCOUNTER → 2020-05-26 | Outpatient (CLI) | payer MEDICARE ==
[2020-05-26 14:38] LABS: Basophils # (A) 0.1 k/uL (0-0.2); Basophils % (A) 1 %; Eosinophils # (A) 0.1 k/uL (0-0.7); Eosinophils % (A) 1 %; HCT 44.2 % (34.0-46.0); HGB 14.8 gm/dL (11.4-16.0); Lymphocytes % (A) 10 %; MCH 34.2 pg (25.0-35.0); MCHC 33.5 g/dL (31.0-37.0); MCV 102.1 fL (80.0-100.0); Mean Platelet Volume 7.9; Monocytes # (A) 0.7 k/uL (0-1.0); Monocytes % (A) 6 %; Neutrophils # (A) 8.6 k/uL (1.3-7.7); Neutrophils % (A) 82 %; Platelet Count 341 k/uL (150-450); RBC 4.33 m/uL (3.80-5.40); RDW 12.1 % (11.5-15.5); WBC 10.4 k/uL (3.8-10.6)
[2020-05-26 14:45] LABS: Calcium 10.3 mg/dL (8.4-10.2); Potassium 4.5 mmol/L (3.5-5.1)
== END | disposition home or self-care (01) ==
LOC: LABPAT 12:37
PROVIDERS: ATTEND Obstetrics & Gynecology
DX: Z01.812 Encounter for preprocedural laboratory examination (principal)
CPT/HCPCS: 80048; 85025; 93005

== ENCOUNTER 2020-06-05 05:45 | Day surgery (SDC) | payer MEDICARE ==
--- NOTE | 2020-06-04 15:50 | P.HPOB ---
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 She is scheduled for a robotic-assisted laparoscopic hysterectomy with bilateral salpingo-oophorectomy for same. Risks/benefits/alternatives to this procedure were reviewed with the patient in detail and all questions were answered for her prior to proceeding to the operative room. Risks did include but were not limited to bleeding and infection, damage to bladder or bowel or ureters. Vascular injuries nerve injuries potential need for other surgery. Past Medical History Past Medical History: Cancer, GERD/Reflux, Hypertension, Osteoarthritis (OA) Additional Past Medical History / Comment(s): Cervical CA, ddd, benign hand tremors History of Any Multi-Drug Resistant Organisms: None Reported Past Surgical History: Orthopedic Surgery Additional Past Surgical History / Comment(s): rt foot surgery, surgery for cervical CA, surg. left 4th & 5th fingers for fx.'s Past Anesthesia/Blood Transfusion Reactions: No Reported Reaction Smoking Status: Current every day smoker - Past Family History Mother Family Medical History: Cancer Medications and Allergies Home Medications Medication Instructions Recorded Confirmed Type Propranolol HCl 80 mg PO 1300 08/27/16 05/29/20 History traMADol HCL [Ultram] 50 mg PO QID 08/27/16 05/29/20 History FLUoxetine HCL [PROzac] 40 mg PO 1300 12/07/18 05/29/20 History Omeprazole [PriLOSEC] 40 mg PO 1300 12/07/18 05/29/20 History Ergocalciferol [Vitamin D2 (1250 1,250 mcg PO WEEKLY 05/29/20 05/29/20 History Mcg = 33938 Iu)] Montelukast [Singulair] 10 mg PO 1300 05/29/20 05/29/20 History amLODIPine [Norvasc] 10 mg PO 1300 05/29/20 05/29/20 History Allergies Allergy/AdvReac Type Severity Reaction Status Date / Time No Known Allergies Allergy Verified 05/29/20 14:24 Exam Osteopathic Statement: *. No significant issues noted on an osteopathic structural exam other than those noted in the History and Physical/Consult. - OBG Physical Exam Breast: both: normal (no masses) Abdomen: bowel sounds normal, no diffuse tenderness, no bruit present, no guarding noted, no hepatomegaly, no splenomegaly, no mass Vulva: both: normal Vagina: normal moisture, no discharge Cervix: no lesion, no discharge Uterus: normal size, normal contour Adnexa: both: normal Anus/Rectum: normal perianal skin, no rectal mass, no hemorrhoids, heme negative
[~2020-06-05 05:45] MED LIST changes: +DEXAMETHASONE SOD PHOSPHATE 4 MG/ML 1 ML VIAL IV ONE; -LACTATED RINGERS 1,000 ML IV SCH; +LIDOCAINE 1% (10MG/ML) FOR IV START INTRADERMA PRN; -LIDOCAINE 1% 20 ML VIAL (10MG/ML) FOR IV START INTRADERMA PRN; -LIDOCAINE 1% INJ 10MG/ML (20 ML MDV) ONE; +ONDANSETRON 4 MG/2 ML VIAL IVP ONE; -PROPOFOL 10 MG/ML 20 ML VIAL IV ONE
[2020-06-05] MEDS ORDERED: ONDANSETRON 4 MG/2 ML VIAL ONE (06:31)
[2020-06-05] MEDS: LACTATED RINGERS 1,000 ML IV SCH ×2 (06:36→19:36)
[2020-06-05] MEDS ORDERED: SCOPOLAMINE 1.5MG/72HR PATCH TRANSDERM ONE (06:45)
[2020-06-05] MEDS ORDERED: MIDAZOLAM 2 MG/2 ML VIAL IV ONE (07:00)
--- NOTE | 2020-06-05 07:16 | P.ANPRN ---
Procedure Note - Anesthesia - Nerve Block Performed Bilateral Erector Spinae Single Time Out Performed: Yes Date of Procedure: 06/05/20 Procedure Start Time: 06:59 Procedure Stop Time: 07:05 Location of Patient: PreOp Indication: Acute Post-Operative Pain, Requested by Surgeon Sedation Type: Sedate with meaningful contact maintained Preparation: Sterile Prep Position: Prone Needle Types: Pajunk Needle Gauge: 21 Ultrasound used to visualize needle placement: Yes Ultrasound used to observe medication spread: Yes Blood Aspirated: No Pain Paresthesia on Injection Noted: No Resistance on Injection: Normal Image Stored and Saved: Yes Events: Uneventful and Well Tolerated (rop1 .25% 30cc bilaterally)
[2020-06-05] MEDS ORDERED: NEOSTIGMINE 1 MG/ML 10 ML VIAL ONE (07:24)
[2020-06-05] MEDS ORDERED: ROPIVACAINE 5 MG/ML 30 ML VIAL ONE (07:24)
[2020-06-05] MEDS ORDERED: SUCCINYLCHOLINE CHLORIDE 100 MG/5 ML SYR IV ONE (07:24)
[2020-06-05] MEDS ORDERED: WATER FOR INJECTION, STERILE 10 ML VIAL IV ONE (07:24)
[2020-06-05] MEDS ORDERED: MIDAZOLAM 2 MG/2 ML VIAL ONE (07:24)
[2020-06-05] MEDS ORDERED: ROCURONIUM 10 MG/ML (5 ML VIAL) IV ONE (07:24)
[2020-06-05] MEDS ORDERED: ePHEDrine SULFATE/0.9% NACL/PF 50 MG/5 ML SYRINGE IV ONE (07:24)
[2020-06-05] MEDS ORDERED: LIDOCAINE 1% INJ 10MG/ML (20 ML MDV) ONE (07:24)
[2020-06-05] MEDS ORDERED: SODIUM CHLORIDE 0.9% (PF) 10 ML VIAL ONE (07:24)
[2020-06-05] MEDS ORDERED: PROPOFOL 10 MG/ML 20 ML VIAL IV ONE (07:24)
[2020-06-05] MEDS ORDERED: GLYCOPYRROLATE 0.2 MG/ML 2 ML VIAL ONE (07:24)
[2020-06-05] MEDS ORDERED: fentaNYL (PF) 50 MCG/ML 2 ML AMP ONE (07:24)
[2020-06-05] MEDS ORDERED: BUPIVACAINE (PF) 0.25% 30 ML VIAL SQ ONE (07:28)
[2020-06-05] MEDS ORDERED: LACTATED RINGERS 1,000 ML IV ONE (08:26)
[2020-06-05] MEDS ORDERED: ONDANSETRON 4 MG/2 ML VIAL IVP PRN (08:38)
[2020-06-05] MEDS ORDERED: SIMETHICONE 80 MG CHEWABLE PO PRN (08:38)
[2020-06-05] MEDS ORDERED: HYDROcodone/APAP 5-325MG 1 EACH TAB PO PRN (08:40)
--- NOTE | 2020-06-05 08:46 | P.OP ---
Date of Procedure: 06/05/20 Preoperative Diagnosis: High-grade squamous intraepithelial lesion Postoperative Diagnosis: Same Procedure(s) Performed: Robotic-assisted laparoscopic hysterectomy with bilateral salpingo-oophorectomy Anesthesia: FRANTZ Surgeon: Hans Alvarado Lead Mason Tender #1: Mica Wahl Estimated Blood Loss (ml): 15 IV fluids (ml): 900 Urine output (ml): 100 Pathology: other (Uterus, cervix, fallopian tubes and ovaries) Condition: stable Disposition: floor Operative Findings: Pathology pending normal anatomy otherwise Description of Procedure: Patient was taken to the operating suite where a general anesthetic was found be adequate. She was prepped and draped in the normal sterile fashion and placed in the dorsal lithotomy position. Initially a weighted speculum was inserted in the vagina and the anterior lip of the cervix identified and grasped with a single tooth tenaculum. Cervix was then sounded to 6 cm and the cup size was measured to 3 cm. Cervix then dilated sutures placed at 3 and 9 to assist in removal of the uterus and the Laurita manipulator was inserted without difficulty. Other incidents were then removed and a Gonzalez cath was placed. Gloves were then changed and attention was turned to the abdominal portion of the procedure where 1 mL of quarter percent Marcaine was injected periumbilically. Through this injected anesthetic a 5 mm skin incision was made and through this incision, under direct visualization with an optical trocar and sleeve, the camera was inserted. Once peritoneal place was assured gas was allowed to fully insufflate the abdomen and patient then placed in 25 Trendelenburg position. Once this was completed 2 lateral ports were placed 10 cm lateral to the umbilicus on the right left side these were placed through 8 mm skin incisions under direct visualization. Fourth port and sleeve was then placed between the left lateral and medial port 31 cm incision. Camera port was exchanged for a robotic port and the robot was brought in and docked. Once fully docked a scissor was placed in the one arm and a [place] grasper in the 2 arm at this point I did break scrub and go to the console. Uterus was then elevated and observations [place] noted there was some scarring of the descending colon to left lateral wall which was bluntly and sharply dissected free to allow for good visualization of the left ovary and tube which was then elevated. Infundibular pelvic ligament was then identified cauterized and transected. Following the mesosalpinx behind the ovarian tissue the tissues cauterized and transected to the round ligament. Once the round ligament doubly was tracked cauterized and transected and anterior posterior leafs the broad ligament were developed. Vascular down the left side of the uterus was then cauterized and the bladder flap was identified. Bladder flap was then elevated incised and this was opened across face uterus and then the bladder was bluntly dissected out of the operative field. Attention was then turned to the right side of the uterus which can affect similar fashion was developed. Once this was completed and excellent control of the vascularity along the lateral border sleeves were made dissection down to the cup was done anterior colpotomy was then made and the balloon was blown up in the Laurita manipulator. Following the cup in a counter clockwise fashion cheating head when necessary to maintain excellent hemostasis the cervix and uterus were excised from the vaginal tissues. Once 3 and 60 was accomplished uterus was placed in the vagina to maintain pneumoperitoneum. Excellent hemostasis is been noted across all pedicles therefore instruments are exchanged for a make suture cut and Bao grasper and a to OB lock suture was then brought into the abdomen. In a running fashion the vaginal cuff was reapproximated. Once closed and excellent hemostasis was obtained pelvis was irrigated. Seeing no bleeding all incidents were then removed and gas allowed to expel from the abdomen. 5 deep breaths were provided during this process. Ports were then removed and Dr. Vish meyers incision subcuticularly wall I did a cystoscopy verifying good flow from both ureteral jets. Sponge, lap, needle counts were all correct 2. Patient was then taken to the recovery room in stable and satisfactory condition.
[2020-06-05] MEDS: KETOROLAC 15 MG/ML 1 ML VIAL IVP PRN ×2 (09:35→14:53)
[2020-06-05] MEDS: SENNOSIDES-DOCUSATE SODIUM 1 EACH TAB PO SCH ×2 (10:30→20:19)
[2020-06-05] MEDS: HYDROcodone/APAP 5-325MG 1 EACH TAB PO PRN (20:19)
[2020-06-05 20:47] VITALS: RESP 16
[2020-06-06] MEDS: HYDROcodone/APAP 5-325MG 1 EACH TAB PO PRN ×2 (03:06→08:58)
[2020-06-06 08:33] VITALS: BP 136/79; PULSE 68; TEMP 98.8
[2020-06-06] MEDS: SENNOSIDES-DOCUSATE SODIUM 1 EACH TAB PO SCH (08:58)
--- NOTE | 2020-06-06 09:24 | P.DS ---
Providers Expected date of discharge: 06/06/20 Attending physician: Hans Alvarado Primary care physician: [facility] Hospital Course: Bailee is doing very well postop day 1. She is ambulating, voiding and tolerating her diet. She voices no complaints. Vital signs are stable and afebrile. Heart regular, lungs clear, extremities without pain. Abdomen is soft incisions are intact. Assessment postop day 1. Plan discharged home follow up with me in 1 week. Prescriptions for pain medication for to pharmacy and all other questions were answered for her prior to her discharge. She is stable for discharge at this time. Patient Condition at Discharge: Good Plan - Discharge Summary Discharge Rx Participant: Yes New Discharge Prescriptions: New Ibuprofen [Motrin] 600 mg PO Q6HR PRN #30 tab PRN Reason: Pain HYDROcodone/APAP 5-325MG [[place] 5-325] 1 tab PO Q4HR PRN #30 tab PRN Reason: Pain No Action Propranolol HCl 80 mg PO 1300 traMADol HCL [Ultram] 50 mg PO QID FLUoxetine HCL [PROzac] 40 mg PO 1300 Omeprazole [PriLOSEC] 40 mg PO 1300 amLODIPine [Norvasc] 10 mg PO 1300 Montelukast [Singulair] 10 mg PO 1300 Ergocalciferol [Vitamin D2 (1250 Mcg = 17550 Iu)] 1,250 mcg PO WEEKLY Discharge Medication List Propranolol HCl 80 mg PO 1300 08/27/16 [History] traMADol HCL [Ultram] 50 mg PO QID 08/27/16 [History] FLUoxetine HCL [PROzac] 40 mg PO 1300 12/07/18 [History] Omeprazole [PriLOSEC] 40 mg PO 1300 12/07/18 [History] Ergocalciferol [Vitamin D2 (1250 Mcg = 25721 Iu)] 1,250 mcg PO WEEKLY 05/29/20 [History] Montelukast [Singulair] 10 mg PO 1300 05/29/20 [History] amLODIPine [Norvasc] 10 mg PO 1300 05/29/20 [History] HYDROcodone/APAP 5-325MG [[place] 5-325] 1 tab PO Q4HR PRN #30 tab 06/06/20 [Rx] Ibuprofen [Motrin] 600 mg PO Q6HR PRN #30 tab 06/06/20 [Rx] Follow up Appointment(s)/Referral(s): Hans Alvarado DO [Doctor of Osteopathic Medicine] - 1 Week Patient Instructions/Handouts: *Surgery [facility] - Scopalamine Patch Instructions Activity/Diet/Wound Care/Special Instructions: Be lifting, limit stairs and driving, and pelvic rest. No tub baths for 2 weeks. If any high temperatures, heavy bleeding, or severe pain call my office Discharge Disposition: HOME SELF-CARE
[2020-06-06] MEDS ORDERED: MONTELUKAST 10 MG TAB PO SCH (13:00)
[2020-06-06] MEDS ORDERED: PANTOPRAZOLE 40 MG TABLET PO SCH (13:00)
[2020-06-06] MEDS ORDERED: PROPRANOLOL 40 MG TAB PO SCH (13:00)
[2020-06-06] MEDS ORDERED: amLODIPine 10 MG TAB PO SCH (13:00)
[2020-06-06] MEDS ORDERED: FLUoxetine HCL 20 MG CAP PO SCH (13:00)
== END 2020-06-06 10:30 | disposition home or self-care (01) ==
LOC: OR 05:45 → 4FBP 08:33 → OR 06-06 10:30
PROVIDERS: ATTEND Obstetrics & Gynecology
DX: N87.1 Moderate cervical dysplasia (principal); N85.8 Other specified noninflammatory disorders of uterus; D25.9 Leiomyoma of uterus, unspecified; N83.312 Acquired atrophy of left ovary; N83.311 Acquired atrophy of right ovary; K21.9 Gastro-esophageal reflux disease without esophagitis; I10 Essential (primary) hypertension; M19.90 Unspecified osteoarthritis, unspecified site; M51.9 Unspecified thoracic, thoracolumbar and lumbosacral intervertebral disc disorder; F17.210 Nicotine dependence, cigarettes, uncomplicated; F32.9 Major depressive disorder, single episode, unspecified; Z98.890 Other specified postprocedural states; Z85.41 Personal history of malignant neoplasm of cervix uteri; Z86.69 Personal history of other diseases of the nervous system and sense organs; Z87.81 Personal history of (healed) traumatic fracture; Z79.899 Other long term (current) drug therapy; Z79.891 Long term (current) use of opiate analgesic; Z80.9 Family history of malignant neoplasm, unspecified
CPT/HCPCS: 58571; 64999; 76942; 88309; J2250; J1100; J2710; J0690; J2405; J2001; J3010; J2795; J1885; J0330; J2704; 36415; 86850; 86900; 86901

== ENCOUNTER → 2022-06-10 | Outpatient (CLI) | payer MEDICARE ==
--- NOTE | 2022-06-10 12:02 | CTL ---
EXAMINATION TYPE: CT Low Dose Lung DATE OF EXAM ORDERED: 06/10/2022 HISTORY: . Lung cancer screening CT DLP: 56.[address] CTDI: 1.4 mGy Automated exposure control for dose reduction was used. SCREENING VISIT: COMPARISON: 01/25/2000 TECHNIQUE: Low dose computed tomography scan was performed through the chest at 1 mm thick sections a nd reconstructed images in multiple planes at 1 mm and [address] DIAGNOSTIC QUALITY: Satisfactory FINDINGS: Biapical pleural thickening with 1 to 2 mm areas of subpleural nodularity and benign appearance. Ther e is a persistent groundglass cavitary nodule within the right upper lobe measuring 1.7 cm x 1.5 cm . No evidence of focal pneumonia or pleural effusion. No pneumothorax. Mild emphysematous changes are n oted. Aorta of normal caliber. Hypertrophic and degenerative changes of the spine. Chronic deformity of the rib cage suggests remote trauma. No pathologic adenopathy. IMPRESSION: 1. 1.7 x 1.5 cm cavitary nodule right upper lobe. Recommend PET scan for further evaluation. 2. COPD with mild coronary artery calcification 3. Biapical pleural thickening with 1 to 2 mm subpleural nodules in the benign appearance. CT LUNG RAD AND CT CHEST RECOMMENDATION: Lung-Rad 4A Suspicious: Recommend PET scan. S Modifier (other clinically significant findings):
== END | disposition home or self-care (01) ==
LOC: RADCTMAIN 11:02
PROVIDERS: ATTEND Family Medicine
DX: Z12.2 Encounter for screening for malignant neoplasm of respiratory organs (principal); J44.9 Chronic obstructive pulmonary disease, unspecified; I25.10 Atherosclerotic heart disease of native coronary artery without angina pectoris; J94.8 Other specified pleural conditions; F17.210 Nicotine dependence, cigarettes, uncomplicated; R91.1 Solitary pulmonary nodule
CPT/HCPCS: 71271

== ENCOUNTER → 2022-08-30 | Outpatient (CLI) | payer MEDICARE ==
--- NOTE | 2022-08-30 15:26 | BD ---
EXAMINATION TYPE: Axial Bone Density DATE OF EXAM: 08/30/2022 CLINICAL HISTORY: 62 years old Female. ICD-10 CODE: Z78.0 [place]TOMATIC [place] Height: 65 Weight: 118.5 FRAX RISK QUESTIONS: Alcohol (3 or more units per day): no Family History (Parent hip fracture): no Glucocorticoids (More than 3mos): no History of Fracture in Adulthood: Fingers, Ankle Secondary Osteoporosis: 1. Type 1 Diabetes: no 2. Hyperthyroidism: no 3. Menopause before 45: yes 4. Malnutrition: no 5. Chronic liver disease: no Rheumatoid Arthritis: no Current Tobacco Use: yes RISK FACTORS HISTORY OF: Hip Fracture (Right/Left): no Spine Fracture: no History of Wrist Fracture: no Surgery to Spine/Hip(right/left)/Wrist (right/left): no Family History of Osteoporosis: no Active: somewhat Diet low in dairy products/other sources of calcium: yes Postmenopausal woman: yes Take estrogen and/or progesterone medications: no Lost more than 2 inches in height since high school: no Frequent falls: no Poor Health: no Hyperparathyroidism: no Adrenal Insufficiency: no MEDICATIONS: Prednisone or other steroids: no Thyroid Medications: no Osteoporosis Medications: no Additional Medications: Reflux Meds, Fluoxetine,Propranolol, Vit D, Montelukast, Multi Vit, Amlodipine Additional History: EXAM MEASUREMENTS: Bone mineral densitometry was performed using the [employer] System. Bone mineral density as measured about the Lumbar spine is: ----- L1-L4(G/cm2): 1.063 T Score Values are as follows: ----- L1: -1.6 ----- L2: -1.4 ----- L3: -0.8 ----- L4: -0.4 ----- L1-L4: -1.0 Z Score Values are as follows: ----- L1: 0.2 ----- L2: 0.3 ----- L3: 0.9 ----- L4: 1.3 ----- L1-L4: Bone mineral density has: decreased -1.8 since the study of 02/09/2019 Bone mineral density about the R hip (g/cm2): 0.787 Bone mineral density about the L hip (g/cm2): 0.754 T Score values are as follows: -----R Neck: -1.5 -----L Neck: -1.5 -----R Total: -1.8 -----L Total: -2.0 Z Score values are as follows: -----R Neck: 0.1 -----L Neck: 0.1 -----R Total: -0.5 -----L Total: -0.7 Bone mineral density has: decreased -0.8 since the study of 02/09/2019 FRAX%s: The graph provided illustrates a 12.7% chance for a major osteoporotic fx and a 2.2% chance f or the hips probability for fx in 10 years time. IMPRESSION: Osteopenia (T Score between -2.5 and -1). There is slightly increased risk of fracture and the patient may be considered for treatment. Re-Screen 2-5 years. NOTE: T-SCORE=SD OF THE YOUNG ADULT MEAN.
== END | disposition home or self-care (01) ==
LOC: RADBDWWP 14:12
PROVIDERS: ATTEND Family Medicine
DX: M85.89 Other specified disorders of bone density and structure, multiple sites (principal); Z78.0 Asymptomatic menopausal state
CPT/HCPCS: 77080

== ENCOUNTER → 2022-09-24 | Outpatient (CLI) | payer MEDICARE ==
--- NOTE | 2022-09-24 16:13 | PE ---
EXAMINATION TYPE: PET CT fusion skull to thigh DATE OF EXAM: 09/24/2022 CLINICAL INDICATION:Female, 62 years old with history of R91.[address]; TECHNIQUE: Following the intravenous administration of 10.7 mCi of F-18 FDG, whole body images are performed from the skull base to the midthigh. Images are reviewed on the computer in the coronal, a xial, and sagittal planes. Reconstructed rotating images are created on independent workstation and reviewed on the computer. A non-contrast CT is performed in conjunction with the PET scan. Glucose level 78 mg/dL COMPARISON: CT CT chest dating back to 01/25/2020, PET/CT 05/09/2020 FINDINGS: Mediastinal SUV mean is 1.2. Hepatic parenchyma SUV mean is 1.8. SKULL BASE AND NECK: No suspicious radiotracer activity. CHEST, MEDIASTINUM, AND HILAR REGION: Right upper lung irregular nodular similar groundglass opacity with suspected cystic change max SUV 0.6, previously 0.4. Measuring 22 x 12, previously 14 x 12 in 20 21 ABDOMEN AND PELVIS: No suspicious radiotracer activity. MUSCULOSKELETAL STRUCTURES: No suspicious radiotracer activity. OTHER CT: Atherosclerosis of the of the arterial vasculature. Mild multilevel disc degeneration levy es throughout spine. IMPRESSION: Similar findings with low levels FDG activity below background. Continued surveillance with CT recomm ended as this may represent minimally invasive adenocarcinoma.
== END | disposition home or self-care (01) ==
LOC: RADPETMAIN 13:39
PROVIDERS: ATTEND Family Medicine
DX: R91.8 Other nonspecific abnormal finding of lung field (principal)
CPT/HCPCS: 78815; A9552

== ENCOUNTER → 2022-12-20 | Outpatient (CLI) | payer MEDICARE ==
--- NOTE | 2022-12-30 10:43 | MM ---
Reason for Exam: Follow-up at short interval from prior study. Last screening mammogram was performed 7 month(s) ago. Patient History: Menarche at age 11. First Full-Term at age 24. Left ovary removed at age 59. Right ovary removed at age 59. Hysterectomy at age 59. Postmenopausal. Patient has history of breast feeding. Maternal grandmother had breast cancer. Maternal aunt had breast cancer. Risk Values: Olga 5 year model risk: 1.5%. NCI Lifetime model risk: 6.8%. Prior Study Comparison: 02/09/2019 Bilateral Screening Mammogram, [facility]. 05/06/2022 Bilateral MG 3D screening mammo w/cad, [facility]. 05/11/2022 Right MG 3D work up w/cad RT, [facility]. Tissue Density: Right: The breast tissue is heterogeneously dense. This may lower the sensitivity of mammography. Findings: Analyzed By CAD. No new suspicious masses, calcifications or distortions. Overall Assessment: Negative, BI-RAD 1 Management: Screening Mammogram of both breasts in 1 year. Results were given to the patient verbally at the time of exam. Patient should continue monthly self-breast exams. A clinical breast exam by your physician is recommended on an annual basis. This exam should not preclude additional follow-up of suspicious palpable abnormalities. Note on Olga scores and lifetime risk: 1. A Olga score greater than 3% is considered moderate risk. If this is the case, consider specialist referral to assess eligibility for a risk reducing agent. 2. If overall lifetime risk for the development of breast cancer is 20% or higher, the patient may qualify for future screening with alternating mammogram and breast MRI. Electronically signed and approved by: Jose F Roberts DO
== END | disposition home or self-care (01) ==
LOC: RADMAMWWP 13:00
PROVIDERS: ATTEND Family Medicine
DX: R92.8 Other abnormal and inconclusive findings on diagnostic imaging of breast (principal); Z78.0 Asymptomatic menopausal state; Z80.3 Family history of malignant neoplasm of breast
CPT/HCPCS: 77065; G0279; 77061

== ENCOUNTER → 2023-06-13 | Outpatient (CLI) | payer MEDICARE ==
--- NOTE | 2023-06-14 10:04 | CTL ---
EXAMINATION TYPE: CT Low Dose Lung DATE OF EXAM: 06/13/2023 11:27 AM CLINICAL INDICATION:Female, 62 years old with history of Z12.2 screening for malignant neoplasm; curr ent smoker 1ppd x30 years. , history of tobacco use. COMPARISON: None. TECHNIQUE: Multiple axial non-contrast scans were obtained from approximately the lung apices through the upper abdomen. Coronal and sagittal reformatted images were obtained. Low dose technique was uti lized. CT DLP: 62.20 mGycm, Automated exposure control for dose reduction was used. CT Contrast: Contrast used: None Oral contrast used: None FINDINGS: ======== Lack of intravenous contrast and low dose technique limits the evaluation of the vascular and soft ti ssue structures. LUNGS: Mild scarring in the lung apices. No evidence of focal consolidation, pneumothorax or pleural effusion. Sizable nodules(> 6mm) RUL: Stable 1.5 mm cavitary semisolid nodule.. RML: None. RLL: None. LORIE: None. LLL: None. AIRWAY: Patent and unremarkable. HEART: Size within normal limits. MEDIASTINUM: No gross evidence of adenopathy. VASCULATURE: No aortic aneurysm. MUSCULOSKELETAL: No acute osseous abnormalities SOFT TISSUES/LYMPH NODES: Unremarkable. LOWER NECK: No significant findings. UPPER ABDOMEN: No significant findings. IMPRESSION: 1. No clinically significant pulmonary nodules. 2. Stable 15 mm right upper lobe nodule. CT LUNG RAD AND CT CHEST RECOMMENDATION: Lung-Rad 2 Benign Appearance or Behavior: Continue annual sc reening with LDCT in 12 months. S Modifier (other clinically significant findings): S (mild CAD) Recommend smoking cessation (if current smoker), or continuation of smoking cessation (if prior smoke r). Annual screening for lung cancer with low-dose computed tomography is recommended in adults ages 55 to 77 years who have a 30 pack-year smoking history and currently smoke or have quit within the pa st 15 years. Screening should be discontinued once a person has not smoked for 15 years or develops a health problem that substantially limits life expectancy or the ability or willingness to have curat domenico lung surgery. Lung rads 2021 [email or web address]
== END | disposition home or self-care (01) ==
LOC: RADCTMAIN 10:53
PROVIDERS: ATTEND Family Medicine
DX: Z12.2 Encounter for screening for malignant neoplasm of respiratory organs (principal); F17.210 Nicotine dependence, cigarettes, uncomplicated; R91.1 Solitary pulmonary nodule
CPT/HCPCS: 71271

== ENCOUNTER → 2024-03-06 | Outpatient (CLI) | payer MEDICARE ==
--- NOTE | 2024-03-11 05:07 | MM ---
Reason for Exam: Screening (asymptomatic). Last mammogram was performed 1 year(s) and 10 month(s) ago. Patient History: Menarche at age 11. First Full-Term at age 24. Left ovary removed at age 59. Right ovary removed at age 59. Hysterectomy at age 59. Postmenopausal. Patient has history of breast feeding. Maternal grandmother had breast cancer. Maternal aunt had breast cancer. Risk Values: Olga 5 year model risk: 1.5%. NCI Lifetime model risk: 6.6%. Prior Study Comparison: 05/06/2022 Bilateral MG 3D screening mammo w/cad, [facility]. 05/11/2022 Right MG 3D work up w/cad RT, [facility]. 12/20/2022 Right MG 3D diag mammo w/cad RT, [facility]. Tissue Density: The breasts are heterogeneously dense, which may obscure small masses. Findings: Analyzed By CAD. The pattern is symmetrical. Scattered benign calcifications are present. No suspicious groups of microcalcifications, spiculated or lobular masses, architectural distortion or other secondary signs of malignancy are mammographically apparent. Overall Assessment: Benign, BI-RAD 2 Management: Screening Mammogram of both breasts in 1 year. A negative mammogram report should not preclude additional follow up of suspicious palpable abnormalities. Patient should continue monthly self breast exam. A clinical breast exam by your physician is recommended on an annual basis and results should be correlated with mammographic findings. Note on Olga scores and lifetime risk: 1. A Olga score greater than 3% is considered moderate risk. If this is the case, consider specialist referral to assess eligibility for a risk reducing agent. 2. If overall lifetime risk for the development of breast cancer is 20% or higher, the patient may qualify for future screening with alternating mammogram and breast MRI. [facility], , 03/11/2024 5:04 AM. Electronically signed and approved by: Brodie Dunham D.O. Radiologis
== END | disposition home or self-care (01) ==
LOC: RADMAMWWP 10:01
PROVIDERS: ATTEND Family Medicine
DX: Z12.31 Encounter for screening mammogram for malignant neoplasm of breast (principal); Z78.0 Asymptomatic menopausal state; Z80.3 Family history of malignant neoplasm of breast; Z90.722 Acquired absence of ovaries, bilateral; R92.333 Mammographic heterogeneous density, bilateral breasts
CPT/HCPCS: 77063; 77067

== ENCOUNTER → 2024-08-13 | Outpatient (CLI) | payer MEDICARE ==
--- NOTE | 2024-08-13 11:33 | CTL ---
EXAMINATION TYPE: CT Low Dose Lung DATE OF EXAM ORDERED: 08/13/2024 COMPARISON: Prior CT June 13, 2023 and older CTs. CLINICAL INDICATION: Female, 63 years old with history of Z12.2, F17.210; PHH, SMOKER, Lung cancer sc reening, History of Smoking/tobacco use. TECHNIQUE: Low dose computed tomography scan was performed through the chest at 1 mm thick sections a nd reconstructed images in multiple planes at 1 mm and [address] DLP: [address] CTDI: 1.61 mGy Automated exposure control for dose reduction was used. CT DIAGNOSTIC QUALITY: Satisfactory FINDINGS: Nodules: No new greater than 4 mm pulmonary nodules. LUNGS: COPD: Severity: None Fibrosis: Severity: Focal irregular fibrosis right upper lobe measuring around 1.9 cm coronal image 2 7 is redemonstrated Lymph nodes: None Other findings: None RIGHT PLEURAL SPACE: Effusion: None Calcification: None Thickening: None Pneumothorax: None LEFT PLEURAL SPACE: Effusion: None Calcification: None Thickening: None Pneumothorax: None HEART: Heart Size: Normal Coronary Calcification: Small Pericardial Effusion: None OTHER FINDINGS: Upper abdomen: None Bony thorax: None Supraclavicular region: None Other: None IMPRESSION: No new greater than [address] LUNG RAD AND CT CHEST RECOMMENDATION: Lung-Rad 1 Negative: Continue annual screening with LDCT in 12 months. S Modifier (other clinically significant findings): None [facility], , 08/13/2024 11:30 AM
== END | disposition home or self-care (01) ==
LOC: RADCTMAIN 10:45
PROVIDERS: ATTEND Family Medicine
DX: Z12.2 Encounter for screening for malignant neoplasm of respiratory organs (principal); F17.210 Nicotine dependence, cigarettes, uncomplicated
CPT/HCPCS: 71271